=== PATIENT | male | born 2000 ===

== ENCOUNTER 2021-01-24 00:53 | Emergency (ER) | payer OTHER ==
[~2021-01-24] VITALS: Ht 185.4 cm; Wt 78.0 kg
[2021-01-24 01:03] VITALS: BP 134/71
--- NOTE | 2021-01-24 01:03 | NUR ---
biba for glf at home. per ems, pt suddenly felt lightheaded and fell back and his hit head. -LOC, -blood thinners. ~1.5 cm lac on back of head, neuro intact, no midline cervical tenderess.
[2021-01-24] MEDS ORDERED: ACETAMINOPHEN 500 MG TABLET PO ONE (01:30)
[2021-01-24] MEDS ORDERED: LIDOCAINE-MPF 1%, 5ML INFIL ONE (01:30)
[2021-01-24] MEDS ORDERED: ACETAMINOPHEN 500 MG TABLET ONE (01:38)
[2021-01-24] MEDS ORDERED: LIDOCAINE-MPF 2% ,5ML ONE (01:38)
[2021-01-24] MEDS ORDERED: LIDOCAINE-MPF 1%, 5ML ONE (01:43)
== END 2021-01-24 02:41 | disposition home or self-care (01) ==
LOC: ED 01:41
DX: S01.01XA Laceration without foreign body of scalp, initial encounter (principal); R55 Syncope and collapse; R42 Dizziness and giddiness; R00.1 Bradycardia, unspecified; X58.XXXA Exposure to other specified factors, initial encounter; Y93.89 Activity, other specified; Y92.89 Other specified places as the place of occurrence of the external cause; Y99.8 Other external cause status
CPT/HCPCS: 12001; 12002; 93005; 99283